=== PATIENT | female | born 1965 | race Caucasian/White ===

== ENCOUNTER 2019-11-03 13:28 | Outpatient (CLI) | payer MEDICARE, SELFPAY ==
--- NOTE | ~2019-11-03 | MM_ITS ---
EXAMINATION: MM screening ricky BI w tino HISTORY: Screening mammogram TECHNIQUE: Craniocaudal and mediolateral oblique 3-D tomosynthesis images were obtained and synthetic 2-D images were generated. CAD analysis was submitted and interpreted. COMPARISON: 04/17/2018, 02/14/2017, 02/01/2016 bilateral digital screening mammogram examinations BREAST PARENCHYMAL COMPOSITION: There are scattered areas of fibroglandular density. FINDINGS: There is no evidence of suspicious mass, calcification, or architectural distortion to sugg est malignancy in either breast. There has been no suspicious interval change. IMPRESSION: 1. No mammographic evidence of malignancy. 2. Recommend routine screening mammography in one year. BI-RADS Category 1: Negative Reviewed, dictated and finalized at location A.
== END 2019-11-03 13:29 | disposition home or self-care (01) ==
LOC: ANHIMG 13:33
PROVIDERS: PCP Internal Medicine; Visit Provider Obstetrics & Gynecology
DX: Z12.31 Encounter for screening mammogram for malignant neoplasm of breast (principal)
CPT/HCPCS: 77063; 77067

== ENCOUNTER 2020-01-14 13:35 | Outpatient (CLI) | payer MEDICARE, SELFPAY ==
--- NOTE | ~2020-01-14 | CT_ITS ---
EXAMINATION: CT lung screening DATE: 01/14/2020 14:18 INDICATION: NICOTINE DEPENDENCE, EXPOSURE TO ASBESTOS TECHNIQUE: Computed tomography (CT) of the chest was performed without intravenous contrast. Addition al 3D reconstructions utilizing coronal maximum intensity projection (MIP) were performed. Automated exposure control and iterative reconstruction technique were employed. The dose-length product was 10 4.12 mGy-cm. COMPARISON: None FINDINGS: Small calcified nodule in the right lower lobe consistent with old granulomatous disease. Lungs other aldana clear with no other suspicious pulmonary nodules, pneumonia, pulmonary edema, pleural effusion o r pneumothorax. No evident pleural plaques. Heart size is normal. Small amount of atherosclerotic cor onary artery calcification along the left anterior descending coronary artery. No pericardial effusio n. Thoracic aorta is normal in caliber. No pathologically enlarged thoracic lymphadenopathy. Visualiz ed upper abdomen is unremarkable. Mild thoracic spondylosis. IMPRESSION: 1. Lung-RADS category 1: Negative. Continue annual screening with noncontrast low-dose chest CT in 12 months. Reviewed, dictated and finalized at location A. IMPRESSION: 1. Lung-RADS category 1: Negative. Continue annual screening with noncontrast l ow-dose chest CT in 12 months.
== END 2020-01-14 13:36 | disposition home or self-care (01) ==
PROVIDERS: PCP Internal Medicine; Visit Provider Internal Medicine
DX: F17.210 Nicotine dependence, cigarettes, uncomplicated (principal); Z77.090 Contact with and (suspected) exposure to asbestos
CPT/HCPCS: G0297

== ENCOUNTER 2021-03-21 10:14 | Outpatient (CLI) | payer MEDICARE, SELFPAY ==
--- NOTE | ~2021-03-21 | MM_ITS ---
EXAMINATION: MM screening [facility] BI w tino HISTORY: Screening mammogram TECHNIQUE: Craniocaudal and mediolateral oblique 3-D tomosynthesis images were obtained and synthetic 2-D images were generated. CAD analysis was submitted and interpreted. COMPARISON: 11/03/2019, 04/17/2018, 02/14/2017 BREAST PARENCHYMAL COMPOSITION: The breasts are heterogeneously dense, which may obscure small masses . FINDINGS: There is no evidence of suspicious mass, calcification, or architectural distortion to sugg est malignancy in either breast. There has been no suspicious interval change. IMPRESSION: 1. No mammographic evidence of malignancy. 2. Recommend routine screening mammography in one year. BI-RADS Category 1: Negative Reviewed, dictated and finalized at location A.
== END 2021-03-21 10:15 | disposition home or self-care (01) ==
LOC: ANHIMG 10:17
PROVIDERS: PCP Internal Medicine; Visit Provider Internal Medicine
DX: Z12.31 Encounter for screening mammogram for malignant neoplasm of breast (principal)
CPT/HCPCS: 77063; 77067

== ENCOUNTER 2023-01-11 10:13 | Outpatient (CLI) | payer MEDICARE, SELFPAY ==
--- NOTE | ~2023-01-11 | MM_ITS ---
EXAMINATION: MM screening ricky BI w tino HISTORY: Screening mammogram TECHNIQUE: Craniocaudal and mediolateral oblique 3-D tomosynthesis images were obtained and synthetic 2-D images were generated. CAD analysis was submitted and interpreted. COMPARISON: 03/17/2021, 11/03/2019, 04/17/2018 bilateral screening mammogram examinations BREAST PARENCHYMAL COMPOSITION: The breasts are heterogeneously dense, which may obscure small masses . FINDINGS: There is no evidence of suspicious mass, calcification, or architectural distortion to sugg est malignancy in either breast. There has been no suspicious interval change. IMPRESSION: 1. No mammographic evidence of malignancy. 2. Recommend routine screening mammography in one year. BI-RADS Category 1: Negative Reviewed, dictated and finalized at location A.
== END 2023-01-11 10:14 | disposition home or self-care (01) ==
PROVIDERS: PCP Internal Medicine; Visit Provider Nurse Practitioner Obstetrics & Gynecology
DX: Z12.31 Encounter for screening mammogram for malignant neoplasm of breast (principal)
CPT/HCPCS: 77063; 77067

== ENCOUNTER 2023-04-25 11:53 | Outpatient (CLI) | payer MEDICARE, SELFPAY ==
--- NOTE | ~2023-04-25 | CT_ITS ---
CT Scan of the Chest without Contrast: Clinical Indication: Lung cancer screening, personal history of nicotine dependence Technique: Contiguous sections were acquired throughout the chest without intravenous contrast. Dose reduction technique was used on this scan by utilizing automated exposure control and iterative recon struction technique. The dose-length product (DLP) was 120.29 mGy-cm. COMPARISON: 01/14/2020 Findings: There is no evidence of any significant mediastinal, hilar or axillary lymphadenopathy. The mediastin al soft tissues appear normal. There is no evidence of pleural or pericardial effusion. The lungs are clear. No pulmonary nodules or infiltrates are noted. Images through the upper abdomen reveal no abnormalities. Impression: Lung RADS 1: Negative. 12 month follow-up screening CT advised. Reviewed, dictated and finalized at location . Impression: Lung RADS 1: Negative. 12 month follow-up screening CT advised.
== END 2023-04-25 11:54 | disposition home or self-care (01) ==
PROVIDERS: PCP Internal Medicine; Visit Provider Internal Medicine
DX: Z12.2 Encounter for screening for malignant neoplasm of respiratory organs (principal); F17.210 Nicotine dependence, cigarettes, uncomplicated
CPT/HCPCS: 71271

== ENCOUNTER 2023-05-22 13:30 | Outpatient (CLI) | payer MEDICARE, SELFPAY ==
--- NOTE | ~2023-05-22 | DEXA_ITS ---
Bone Density Report Name: ROXANA WORKMAN Age: 57 Sex: Female Ethnicity: White Date of : 1965 Indication: postmenopausal; screening for osteoporosis; height loss; Referring Provider: VICKIFAISAL Study: Bone densitometry was performed. Exam Date: May 22, 2023 Accession number: [id number] Bone Density: Region BMD T-score Z-score Classification AP Spine(L1-L4) 1.248 1.8 3.2 Normal Femoral Neck (Left) 0.754 -0.9 0.4 Normal Total Hip (Left) 0.959 0.1 1.1 Normal Femoral Neck (Right) 0.727 -1.1 0.2 Osteopenia Total Hip (Right) 0.938 0.0 0.9 Normal Total Hip Mean 0.949 0.1 1.0 Normal World Health Organization criteria for BMD impression classify patients as: Normal (T-score at or above -1.0), Osteopenia (T-score between -1.0 and -2.5), or Osteoporosis (T-score at or below -2.5). 10-year Fracture Risk(1): Major Osteoporotic Fracture 6.8% Hip Fracture 0.7% Reported Risk Factors: [place] (), Neck BMD=0.727, BMI=30.6, smoking (1) FRAX(R) Version 3.08. Fracture probability calculated for an untreated patient. Fracture probability may be lower if the patient has received treatment. Clinical Information Provided by Patient: Smokes Has used the following medications: Vitamin D, Calcium Patient maximum height was 64 Menopause Age: 41 No regular weight bearing exercise Drinks caffeinated beverages Onset of menses at age 9 Number of children 2 Impression: The patient has low bone mass, based on the Right Femoral Neck T-score. The patient has an estimated ten-year risk of hip fracture of 0.7% and an estimated ten-year risk of major fracture of 6.8%, based on the WHO FRAX algorithm. The patient has risk factors, including: smoking. Discussion: BONE DENSITY IS LOW AT ONE OR MORE SKELETAL SITES. This patient's lowest T-score is low at one or more skeletal sites. It meets the World Health Organization's (WHO) criteria for ?low bone mass? (T-score between -1.0 and -2.5). The patient's 10-year risk of fracture as calculated by FRAX is less than the threshold where pharmacological therapy is recommended by the National Osteoporosis Foundation (NOF). However, all treatment decisions require clinical judgment and consideration of individual patient factors, including patient preferences, comorbidities, previous drug use, risk factors not captured in the FRAX model (e.g., frailty, falls, vitamin D deficiency, increased bone turnover, interval significant decline in bone density) and possible under or overestimation of fracture risk by FRAX. The patient should follow a healthful lifestyle (good nutrition with adequate calcium and vitamin D, and appropriate weight-bearing exercise). Follow-Up: Consider repeating this study in 2 to 3 years to reassess this patient
== END 2023-05-22 13:31 | disposition home or self-care (01) ==
LOC: ANHIMG 13:32
PROVIDERS: PCP Internal Medicine; Visit Provider Internal Medicine
DX: Z13.820 Encounter for screening for osteoporosis (principal); Z78.0 Asymptomatic menopausal state
CPT/HCPCS: 77080

== ENCOUNTER 2025-02-08 06:45 | Day surgery (SDC) | payer MEDICARE, SELFPAY ==
[2025-01-26 13:55] VITALS: BMI 26.4
--- OUTSIDE RECORDS SUMMARY | 2025-02-08 07:04 | XMS_ITS ---
Author Organization [facility] [employer] | [facility] Address [address] [place] [address] Care Team Providers Care Supervisor Solder Making Name Role Phone Joel Augustin MD Primary Care Provider Ramiro Cagle Unavailable [phone] Allergies Allergen (clinical drug ingredient) Drug/Non Drug Allergy documented on EMR Reaction Allergy Type Onset Date Status Iodine Unknown Drug Allergy Active Medications Medication SIG (Take, Route, Frequency, Duration) Notes Start Date End Date Status FLUoxetine HCl 40 MG 1 capsule every Mor allison Oral Once a day Active ALPRAZolam 0.5 MG 0.5 tablet Oral Thre e times a day Active Amphetamine-Dextroamphetam ine 30 MG 1 tablet Orally Once a day Active Amphetamine ER 10 MG 1 tablet in the mor allison Orally Once a day Active One A Day Women 50 Plus - as directed Orally Active B Complex - as directed Orally Active HYDROcodone-Acetaminophen 5-325 MG 1 tablet as needed Orally every 6 hrs Active Chantix 1 MG 1 tablet Orally twic e a day; Duration: 30 days 06/10/2024 08/09/2024 Active Social History Sex Assigned At : Social History Observation Description Sex Assigned At Female Vital Signs Height 64 in 06/24/2024 Height-cm 162.56 cm 06/24/2024 Encounters Encounter Location Date Provider Diagnosis [facility] [employer] [place] [id number] [place] [address] 06/24/2024 Ramiro Reyes Plan Of Treatment No Information Progress Notes * Beatriz AGUIRREOB:[birth year] (59 yo F)Acc No.[id number]:06/24/2024 Patient: Carola DAVILA Provider: Socorro REYES MD :1965 A ge:58 Y S ex:Female Date:06/24/2024 Phone: Address:[facility] [address] [facility] Pcp:Joel Augustin MD Subjective: * Chief Complaints: * * Active Problem List F17.200 Nicotine dependence with current use Modified On:04/23/2024W/U Status:confirmed 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 * Medications: T aking ALPRAZolam 0.5 MG Tablet 0.5 tablet Oral Three times a day , Taking Amphetamine-Dextroamphetamine 30 MG Tablet 1 tablet Orally Once a day , Taking Amphetamine ER 10 MG Tablet Chewable Extended Release 1 tablet in the morning Orally Once a day , Taking One A Day Women 50 Plus - Tablet as directed Orally , Taking FLUoxetine HCl 40 MG Capsule 1 capsule every Morning Oral Once a day , Taking B Complex - Capsule as directed Orally , Taking HYDROcodone-Acetaminophen 5-325 MG Tablet 1 tablet as needed Orally every 6 hrs , Taking Chantix 1 MG Tablet 1 tablet Orally twice a day , stop date 08/09/2024, Medication List reviewed and reconciled with the patient * Allergies: I odine. Objective: * Vitals: H t: 64 in, Ht-cm: 162.56 cm. Assessment: Plan: * Treatment: * Billing Information: * Visit Code: * Procedure Codes: * Electronic signature of Ya Reyes MD on 02/08/2025 at 07:04 AM CDT Sign off status: Pending * Provider: Socorro REYES MD Date: 08/24/2023 Generated for Christie adler/Jose L/eTeliansmitting on: 02/08/2025 07:04 AM CDT"
--- OUTSIDE RECORDS SUMMARY | 2025-02-08 07:04 | XMS_ITS | Referral Summary ---
[facility] Organization [facility] Address [address] [place] [address] Care Team Providers Care Nuclear Plant Technical Advisor Name Role Phone Joel Augustin MD Primary Care Provider + Allergies Active Allergy Reactions Criticality Noted Date Comments Iodinated Contrast Media Unknown,Vomiting Low 06/26 Iodine Unknown 06/20/2009 Shellfish Vomiting Low 04/25/2010 Medications medroxyPROGESTER one (PROVERA) 2.5 mg tablet take 1 Tablet by oral route every day 0 0 5 Active estrogens-methyl TESTOSTERone (EEMT,COVARYX) 1.25-2.5 mg per tablet take 1 tablet by oral route for 21 consecutive days, followed by 7 days off 0 0 5 Active rosuvastatin (CRESTOR) 40 mg tablet TAKE 1 TABLET BY MOUTH EVERY DAY 90 3 4 Active fluticasone (FLONASE) 50 mcg/actuation nasal spray inhale 2 spray by Intranasal route every day in each nostril 1 spray 3 1 Active FLUoxetine (PROzac) 40 mg capsule take 1 capsule by oral route every day in the morning 90 3 6 Active zolpidem (AMBIEN) 5 mg tablet Take one by mouth one time per day at bedtime as needed 90 1 8 Active phentermine-topi ramate (QSYMIA) 7.5-46 mg capsule, ER multiphase 24 hr Take 1 capsule by oral route every day in the morning 30 capsule 3 7 Active ALPRAZolam (XANAX) 0.5 mg tablet Take 1 tablet (0.5 mg total) by mouth 3 (three) times a day. 270 tablet 7 Active tretinoin (RETIN-A) 0.01 % gel Apply topically nightly. 30 g 11 7 Active buprenorphine (BUTRANS) 10 mcg/hour Place 1 patch on the skin every 7 days. 12 patch 1 7 Active HYDROcodone-acet aminophen (NORCO) 5-325 mg per tabletIndication s:Pain Take 1-2 tablets by mouth every 4 (four) hours as needed for pain Earliest Fill Date: 06/17/17. 180 tablet 7 Active zolpidem (AMBIEN) 5 mg tabletIndication s:Sleep-Onset Insomnia Take by mouth. Activ e AMOXICILLIN 500 mg capsule TAKE 1 TABLET BY MOUTH TWICE A DAY FOR 7 DAYS 0 9 Active rosuvastatin (CRESTOR) 40 mg tablet Take by mouth daily. Active estradiol (ESTRACE) 0.5 mg tablet Take 0.5 mg by mouth daily. 3 8 Active MIMVEY 1-0.5 mg per tablet Take 1 tablet by mouth daily. 3 8 Active fluticasone (FLONASE ALLERGY RELIEF) 50 mcg/actuation nasal spray Administer into each nostril. Active HYDROcodone-acet aminophen (NORCO) 10 mg hydrocodone per tabletIndication s:Pain Take by mouth. Activ e bimatoprost (LATISSE) 0.03 % ophthalmic solutionIndicati ons:Hypotrichosi s of Eyelid Eyelashes Apply topically. Active methylPREDNISolo ne (MEDROL DOSEPACK) 4 mg Dosepack TAKE 6 TABLETS ON DAY 1 DIRECTED ON PACKAGE AND DECREASE BY 1 TAB EACH DAY FOR A TOTAL OF 6 DAYS 0 9 Active triamcinolone (NASACORT) 55 mcg nasal inhaler Administer into each nostril. Active oseltamivir (TAMIFLU) 75 mg capsule TAKE 1 CAPSULE BY MOUTH TWICE A DAY FOR 5 DAYS 0 9 Active QSYMIA 15-92 mg capsule, ER multiphase 24 hr Take 1 capsule by mouth every morning. 3 9 Active tretinoin (RETIN-A) 0.01 % gel Apply topically daily. Active rOPINIRole (REQUIP) 0.25 mg tablet TAKE 1 TAB BY MOUTH AT BEDTIME. MAY INCREASE TO 2 TABS AT BEDTIME IF NO IMPROVEMENT IN 3 DAYS. 3 9 Active silver sulfadiazine (SILVADENE) 1 % cream Apply topically. 8 Active testosterone (TESTIM,VOGELXO) 50 mg/5 gram (1 %) gel Place 50 mg on the skin daily. 8 Active ALPRAZolam (XANAX) 0.5 mg tablet Take by mouth every 8 hours. Active estrogens-methyl TESTOSTERone (EEMT,COVARYX) 0.625-1.25 mg per tabletIndication s:Vasomotor Symptoms associated with Menopause Take by mouth. 7 Active medroxyPROGESTER one (PROVERA) 2.5 mg tablet Take by mouth daily. 8 Active FLUoxetine (PROzac) 20 mg capsule Take by mouth daily. Active HYDROcodone-acet aminophen (NORCO) 5 mg hydrocodone per tablet TAKE ONE OR TWO TABLETS BY MOUTH EVERY FOUR HOURS NEEDED FOR PAIN 0 9 Active Active Problems Problem Noted Date Diagnosed Date Encounter for screening colonoscopy 07/06/2024 History of colonic polyps 07/06/2024 Family history of colon cancer 07/06/2024 Ganglion of ankle 01/19/2019 Assessment & Plan (01/19/2019 2:44 PM CDT): Unfortunately we do not offer services to remedy this, patient was referred back to , no charge. Healthcare maintenance 05/14/2017 Medication management 05/14/2017 Multiple-type hyperlipidemia 08/27/2016 Overview (11/02/2016): MIXED HYPERLIPIDEMIA Complex regional pain syndrome 07/02/2016 Overview (11/02/2016): Complex regional pain syndrome (CRPS) Menopause present 12/28/2014 Pain of right lower extremity 12/22/2014 Overview (11/02/2016): Right leg pain Macrocytosis 08/23/2014 Overview (11/02/2016): Macrocytosis Tobacco dependence syndrome 12/12/2013 Overview (11/01/2016): TOBACCO USE DISORDER Depression 12/12/2013 Overview (11/02/2016): DEPRESSIVE DISORDER NEC Chronic pain 02/15/2013 Spasm 02/15/2013 Neuralgia 02/15/2013 Complex regional pain syndrome of lower extremit y 02/15/2013 Pain in extremity 07/09/2012 Hypercholesterolemia 06/26/2012 Ankle sprain 06/20/2009 Immunizations Immunization Administration Dates Next Due Influenza, Quadrivalent, Spl it, Intramuscular 04/23/2014 Influenza, Quadrivalent, Spl it, Preservative Free, Intradermal 04/26/2016,06/03/2015 Influenza, Quadrivalent, Spl it, Preservative Free, Intramuscular 05/14/2017 Influenza, Split 07/31/2013,07/02/2011, 0 Influenza, Trivalent, IM (MDV) 04/21/2012,2008 Social History Tobacco Use Types Packs/Day Years Used Date Smoking Tobacco: Every Day Smokeless Tobacco: Current Tobacco Cessation:Ready to Q uit: Yes Alcohol Use Standard Drinks/Week Comments Yes 0 (1 standard drink = 0.6 oz pur e alcohol) social Comments Unknown Sex and Gender Information Value Date Recorded Sex Assigned at Not on file Legal Sex Female 4:48 PM 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 Gender Identity Not on file Sexual Orientation Not on file Last Filed Vital Signs Vital Sign Reading Time Taken Comments Blood Pressure 115/72 03/05/2019 11:37 AM CDT Pulse 84 03/05/2019 11:37 AM CDT Temperature - - Respiratory Rate 20 05/14/2017 3:26 PM CDT Oxygen Saturation - - Inhaled Oxygen Concentration - - Weight 78 kg (172 lb) 03/05/2019 11:37 AM CDT Height 162.6 cm (5' 4) 03/05/2019 11:37 AM CDT Body Mass Index 29.52 03/05/2019 11:37 AM CDT Plan of Treatment Not on file Insurance [facility] MEDICARE [facility] MEDICARE [employer] MEDICARE ADVANTAGE Care Teams Nuclear Plant Technical Advisor Relationship Specialty [place] [address] [place] [address] [place] [address] PCP - General 10/26/16
--- OUTSIDE RECORDS SUMMARY | 2025-02-08 07:04 | XMS_ITS | Data Portability ---
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 Patient will come back in a year unless there are new symptoms. Not available 03/21/2021 12:48:08 11/07/2022 11/07/2022 Annual gynecological exam performed. Patient will come back in a year unless there are new symptoms. [email or web address] Not available 11/07/2022 12:28:16 11/10/2024 11/10/2024 Annual gynecological exam performed. Patient will come back in a year unless there are new symptoms. [email or web address] Not available 11/10/2024 14:33:37 Plan of Treatment Reminders Order Date Submit Date Provider Last Modified By Organization Details Last Modified Time Details Appointments None recorded. Lab pap, IG + HR HPV - HPV regardless but if HPV is positive need subtyping 16,18/45 2024 025 [facility] (Lab), [address], [place], [address], 5 00:21:04 testosteron e, total, serum 2020 021 [facility] (Lab), [address], [place], [address], 1 02:23:04 Referral None recorded. Procedures None recorded. Surgeries None recorded. Imaging MAMMO, screening, digital, bilateral [email or web address] [place] [address] Ctr, [address], [address], [place], [address], 5 10:55:05 MAMMO, screening, bilateral 2022 023 [facility] Ctr, [address], [address], [place], [address], 3 05:01:14 Medication Orders Augmentin 875 mg-125 mg tablet 2022 023 [address] [id number], [address] [place], [place], [id number], 5 14:42:18 estradiol 0.5 mg tablet 2022 023 [place] [address] [facility], [address], [address], [place], [place], [id number], 5 14:44:02 Prometrium 100 mg capsule 2022 023 [place] [address] [facility], [address] [place] [address], [address], [place], [place], [id number], 5 14:46:10 estradiol-n orethindron e acet 0.5 mg-0.1 mg tablet 2020 021 [email or web address] [id number], [address] [place], [address], 3 13:38:02 Patient TargetsNo targets recorded. Patient InstructionsNo instructions recorded. Reason for Referral None Reported. Results Created Date Observation Date Name Description Value Unit Range Abnormal Flag Note LastModifiedBy Organization Detail LastModifiedTime 03/21/20 21 03/21/2021 TESTO STERO NE, TOTAL testosterone , total 19 NG/dL 0-100 Not Available [facility] (Lab) [address], [place], [address], 03/22/2021 02:23:04 03/21/20 21 03/21/2021 IMAGE GUIDE D PAP AND HPV REGAR DLESS image guided Pap, HPV regardless of Pap result SEE RESULT S BELOW CASE REPOR T: Cytol ogy Gynec ologi janna Repor t Case: [id number] Autho terencedavion adela Provi nicole: Bryan tano , Gama Jorge cted: 03/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 Locat ion: [place] [facility] Recei sherry: 03/22 0119 First Scree n: Nicanor Weber, CT Speci men: Marleni cooper Pap - Image d, Cervi x STATE MENT OF ADEQU ACY: Satis facto ry for evalu ation Trans forma tion zone compo nent prese nt FINAL DIAGN OSIS: Negat carroll for Intra epith elial Lesio arron or Chen price (NIL) Elect kristyluana juan joselo d by Nicanor Weber, CT on 2020 at 10:34 AM ----- ----- ----- ----- ----- ----- ----- ----- ----- ----- ----- ----- ----- ----- ----- ----- ----- ---- HPV RESUL TS: HPV mRNA E6/E7 : No HPV mRNA Detec andrew NOTE: This high risk HPV mRNA assay detec ts fourt een high- risk HPV types (16, 18, 31, 33, 35, 39, 45, 51, 52, 56, 58, 59, 66, 68) witho ut diffe renti ation . COMME NT: Note: This speci men was revie wed by a Cytot echno logis t and/o r Patho logis t (as indic ated in this repor t) after evalu ation using the Thinp rep Imagi ng Syste m. CLINI JANNA INFOR MATIO N: Menst rual Statu s: LMP (if appli cable ): Clini janna Histo ry/Pr eviou s Pap: Type of Neopl adeline (if appli cable ): Signi fican t Clini janna Findi ngs: Other Histo ry: Hormo marlene (if appli cable ): PAP EDUCA NAYLA L NOTE: The Pap Test is a scree allison test with an inher ent false negat carroll rate. Liqui d-bas e sampl ing may decre ase, but will not elimi jennifer, false negat carroll resul ts. A negat carroll resul t does not precl ude the prese nce and/o r devel opmen t of disea se, since the prese nce of abnor mal cells in the sampl e depen ds on the locat ion of the lesio n and sampl ing techn ique. Indira nued regul ar scree allison is the best metho d of cance r preve ntion . If repor andrew cytol ogic findi ng do not corre late with physi janna and/o r histo rical findi ngs, furth er inves tigat ion is recom haseeb d, as clini lu mejia nted. 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 Elect aline juan joselo d by Nathan valdes, Shawn alvarez, CT on 2022 at 2:36 PM ----- ----- ----- ----- ----- ----- ----- ----- ----- ----- ----- ----- ----- ----- ----- ----- ----- ---- HPV RESUL TS: HPV mRNA E6/E7 : No HPV mRNA Detec andrew NOTE: This high risk HPV mRNA assay detec ts fourt een high- risk HPV types (16, 18, 31, 33, 35, 39, 45, 51, 52, 56, 58, 59, 66, 68) witho ut diffe renti ation . COMME NT: This speci men was revie wed by a Cytot echno logis t and/o r Patho logis t (as indic ated in this repor t) after evalu ation using the Thinp rep Imagi ng Syste m. CLINI JANNA INFOR MATIO N: Menst rual Statu s: LMP (if appli cable ): Clini janan Histo ry/Pr eviou s Pap: Type of Neopl adeline (if appli cable ): Signi fican t Clini janna Findi ngs: Other Histo ry: Hormo marlene (if appli cable ): PAP EDUCA NAYLA L NOTE: The Pap Test is a scree allison test with an inher ent false negat carroll rate. Liqui d-bas ed sampl ing may decre ase, but will not elimi jennifer, false negat carroll resul ts. A negat carroll resul t does not precl ude the prese nce and/o r devel opmen t of disea se, since the prese nce of abnor mal cells in the sampl e depen ds on the locat ion of the lesio n and sampl ing techn ique. Indira nued regul ar scree allison is the best metho d of linda r preve ntion . If repor andrew cytol ogic findi ng do not corre late with physi janna and/o r histo rical findi ngs, furth er inves tigat ion is recom haseeb d, as clini lu mejia nted. Not Available [facility] (Lab) [address] [facility], [place], [address], 11/12/2022 15:39:00 11/11/19 25 11/10/2024 IMAGE GUIDE D PAP AND HPV REGAR DLESS image guided Pap, HPV regardless of Pap result SEE RESULT S BELOW CASE REPOR T: Cytol ogy Gynec ologi janna Repor t Case: [id number] Autho semaj chapman Provi nicole: Aylin Archibald, VIRAL Colle cted: 11/10 1707 Order ing Locat ion: [place] Patho [place]y Recei sherry: 11/11 0723 First Marleni n: Willa Perry ed, CT Speci men: Marleni cooper Pap - Image d, Cervi x STATE MENT OF ADEQU ACY: Satis facto ry for evalu ation Trans forma tion zone compo nent absen t ----- ----- ----- ----- ----- ----- ----- ----- ----- ----- ----- ----- ----- ----- ----- ----- ----- ---- FINAL DIAGN OSIS: Negat carroll for Intra epith elial Gray heller or Chen price (NIL) . Marshall josue d by Willa Perry ed, CT on 2024 at 2317 CDT ----- ----- ----- ----- ----- ----- ----- ----- ----- ----- ----- ----- ----- ----- ----- ----- ----- ---- HPV RESUL TS: HPV mRNA E6/E7 : No HPV mRNA Detec andrew NOTE: This high risk HPV mRNA assay detec ts fourt een high- risk HPV types (16, 18, 31, 33, 35, 39, 45, 51, 52, 56, 58, 59, 66, 68) witho ut diffe renti ation . COMME NT: This speci men was revie wed by a Cytot echno logis t and/o r Patho logis t (as indic ated in this repor t) after evalu ation using the Thinp rep Imagi ng Syste m. CLINI JANNA INFOR MATIO N: Menst rual Statu s: LMP (if appli cable ): Clini janna Histo ry/Pr eviou s Pap: Type of Neopl adeline (if appli cable ): Signi fican t Clini janna Findi ngs: Other Histo ry: Hormo marlene (if appli cable ): PAP EDUCA NAYLA L NOTE: The Pap Test is a scree allison test with an inher ent false negat carroll rate. Liqui d-bas ed sampl ing may decre ase, but will not elimi jennifer, false negat carroll resul ts. A negat carroll resul t does not precl ude the prese nce and/o r devel opmen t of disea se, since the prese nce of abnor mal cells in the sampl e depen ds on the locat ion of the lesio n and sampl ing techn ique. Indira nued regul ar scree allison is the best metho d of cance r preve ntion . If repor andrew cytol ogic findi ng do not corre late with physi janna and/o r histo rical findi ngs, furth er inves tigat ion is recom haseeb d, as clini lu mejia nted. Not Available [facility] (Lab) [address], [place], [address], 11/12/2024 00:21:04 Result Notes None recorded. Problems Name Problem SNOMED Code Status Onset Date Resolution Date Notes Provider Name and Address Organization Details Recorded Time Screenin g for malignan t neoplasm of rectum Completed 201703/21/2021 Screening for malignant neoplasms of the rectum;Re corded Elsewhere : No Locati on: [facility] So urce: EHR Chron ic: N Practic e ID: 0001 Bill able Time: 01:00:00 PM Deanne Mcdowell [facility] 12:31:48 Speciali zed medical examinat ion Completed 201403/21/2021 Gynecolog ical Examinati on;Record ed Elsewhere : No Locati on: [facility] So urce: EHR Chron ic: N Practic e ID: 0001 Bill able Time: 11:30:00 AM Deanne [facility] 12:31:[address] Concept Completed 201503/21/2021 Encntr for general adult medical exam w/o abnormal findings; Recorded Elsewhere : No Locati on: [facility] So urce: EHR Chron ic: N Practic e ID: 0001 Bill able Time: 03:00:00 PM Deanne Mcdowell [facility] 12:31:49 Adult health examinat ion Completed 201403/21/2021 ROUTINE MEDICAL EXAM;Ayad rded Elsewhere : No Locati on: [facility] So urce: EHR Chron ic: N Practic e ID: 0001 Bill able Time: 11:30:00 AM Deanne [facility] 12:31:28 Acute frontal sinusiti s [id number] Completed 201403/21/2021 Frontal sinusitis ;Recorded Elsewhere : No Locati on: [facility] So urce: EHR Chron ic: N Practic e ID: 0001 Bill able Time: 03:00:00 PM Deanne [facility] 12:31:26 Microsco pic hematuri a [id number] Completed 201403/21/2021 MICROSCOP IC HEMATURIA ;Recorded Elsewhere : No Locati on: [facility] So urce: EHR Chron ic: N Practic e ID: 0001 Bill able Time: 11:30:00 AM Deanne Mcdowell [facility] 12:31:37 Evaluati on finding Completed 201603/21/2021 Hematuria , unspecifi ed;Record ed Elsewhere : No Locati on: [facility] So urce: EHR Chron ic: N Practic e ID: 0001 Bill able Time: 03:00:00 PM Deanne Mcdowell [facility] 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 So urce: EHR Chron ic: N Practic e ID: 0001 Bill able Time: 03:00:00 PM Deanne [facility] 12:31:51 Tobacco user [id number] Completed 201303/21/2021 Tobacco Abuse, History of;Record ed Elsewhere : No Locati on: [facility] So urce: EHR Chron ic: N Practic e ID: 0001 Bill able Time: 11:00:00 AM Deanne Mcdowell [facility] 12:31:55 History of clinical finding in subject [id number] Completed 201303/21/2021 Tobacco Abuse, History of;Record ed Elsewhere : No Locati on: [facility] So urce: EHR Chron ic: N Practic e ID: 0001 Bill able Time: 11:00:00 AM Deanne [facility] 12:31:31 Increase d frequenc y of urinatio n [id number] Completed 201403/21/2021 Urinary frequency ;Recorded Elsewhere : No Locati on: [facility] So urce: EHR Chron ic: N Practic e ID: 0001 Bill able Time: 11:30:00 AM Deanne [facility] 12:31:32 Menopaus e present [id number] Completed 201803/21/2021 Menopausa l and female climacter ic states;Re corded Elsewhere : No Locati on: [facility] So urce: EHR Chron ic: N Practic e ID: 0001 Bill able Time: 01:00:00 PM Deanne [facility] 12:31:35 Menopaus al symptom [id number] Completed 201303/21/2021 Menopausa l or female climacter ic states;Re corded Elsewhere : No Locati on: [facility] So urce: EHR Chron ic: N Practic e ID: 0001 Bill able Time: 11:00:00 AM Deanne Mcdowell [facility] 12:31:34 Screenin g for malignan t neoplasm of cervix Completed 201303/21/2021 Pap Smear;Pra ctice ID: 0001 Deanne [facility] 12:31:46 Proteinu james [id number] Completed 201403/21/2021 Proteinur ia;Practi ce ID: 0001 Deanne Mcdowell [facility] 12:31:[address] Concept Completed 201603/21/2021 Encounter for general adult medical exam w abnormal findings; Practice ID: 0001 Deanne Mcdowell [facility] 12:31:39 Reduced libido [id number] Completed 201703/21/2021 Decreased libido;Re corded Elsewhere : No Locati on: [facility] So urce: EHR Chron ic: N Practic e ID: 0001 Bill able Time: 01:00:00 PM Deanne Mcdowell [facility] 12:31:43 Problem Notes None recorded. Procedures Surgical History Date Name Laterality Status Provider Name and Address Organization Details Recorded Time 11/08/19 23 Date of Last Pap Smear completed [facility] 11/10/2024 14:48:25 03/21/20 21 Date of Last Mammogram completed [facility] 03/21/2021 12:52:01 07/29/19 20 completed [facility] 03/21/2021 12:52:33 07/29/19 20 Colonoscopy completed [facility] 03/21/2021 12:55:35 07/29/19 15 Colonoscopy completed [facility] 03/21/2021 12:55:33 07/29/19 11 procedure on ankle completed [facility] 06/29/2021 14:38:27 07/29/19 07 Endometrial Ablation completed [facility] 06/29/2021 14:38:15 10/10/18 93 section completed [facility] 07/20/2021 16:45:09 11/08/18 90 section completed [facility] 07/20/2021 16:45:18 Imaging Results None recorded. Procedure Notes None recorded. Medical Equipment None Reported. Allergies Allergen ID Allergen Name Allergen Category Reaction Reaction Severity Criticality Documentation Date Start Date Code Code System Note Provider Name and Address Organization Details Recorded Time shellfish derived food,medi cation Not available Not available Not available 11/07/2022 87801 UNK Erlinda Sotelo [facility] 3 12:54:07 Iodinated contrast media (substanc e) medicatio n Not available Not available Not available 11/07/2022 07829 2003 SNOMED Erlinda Sotelo [facility] 3 12:54:16 43747 latex environme nt,medica tion Not available Not available Not available 11/10/2024 85882 91 RxNorm [place] 14:42:09 Medications Name Sig Start Date Stop Date Status Note LastModified by Organization Details LastModified Time fluoxetin e 40 mg capsule TAKE 1 CAPSULE BY MOUTH EVERY DAY IN THE MORNING active Not Available Not Available No t Available tretinoin 0.01 % topical gel APPLY A THIN FILM TO AFFECTED AREA AT BEDTIME 11/07 completed Not Available Not Available Not Available azithromy brown 250 mg tablet take 2 tablet by oral route every day for 1 day then 1 tablet (250 mg) by oral route once daily for 4 days 11/10 completed Not Available Not Available Not Available tizanidin e 4 mg tablet TAKE 1 TABLET BY MOUTH DAILY AT BEDTIME 06/29 completed Not Available Not Available Not Available fluconazo le 150 mg tablet TAKE 1 TABLET BY ORAL ROUTE CAN REPEAT IN 3 DAYS NEEDED 11/10 completed Not Available Not Available Not Available hydrocodo ne 5 mg-acetam inophen 500 mg capsule take 1 capsule by oral route every 6 hours as needed 03/21 completed Prescrib ed Elsewher e: Yes Loca tion: [facility] odify By: yuri solorzano DateTime : 12/24/19 14 01:00:00 PM Not Available Not Available Not Available hydrocodo ne 5 mg-acetam inophen 325 mg tablet TAKE 1 TABLET BY MOUTH DAILY EVERY 4 HOURS NEEDED 11/10 completed Not Available Not Available Not Available Provera 2.5 mg tablet take 1 Tablet by oral route every day 07/09 completed Prescrib ed Elsewher e: No Locat ion: [facility] odify By: Encount er DateTime : 06/18/20 19 09:59:44 AM Not Available Not Available Not Available phentermi ne 15 mg capsule TAKE 1 CAPSULE BY MOUTH ONCE DAILY IN THE MORNING 11/10 completed Not Available Not Available Not Available penicilli n V potassium 500 mg tablet 06/29 completed Not Available Not Available Not Available Flonase 50 mcg/actua tion nasal spray,dilia pension spray 1 spray by intranas al route every day in each nostril 03/21 completed Prescrib ed Elsewher e: Yes Loca tion: Sharyn kinney [facility] odify By: yuri solorzano DateTime : 12/24/19 14 01:00:00 PM Not Available Not Available Not Available estradiol -norethin drone acet 1 mg-0.5 mg tablet take 1 tablet by oral route every day 06/26 completed Prescrib ed Elsewher e: No Locat ion: Sharyn kinney [facility] odify By: jurgen Roth ter DateTime : 04/17/20 18 01:00:00 PM Not Available Not Available Not Available Nasacort AQ 55 mcg nasal spray aerosol spray 1 spray by intranas al route every day in each nostril 03/21 completed Prescrib ed Elsewher e: Yes Loca tion: Sharyn kinney [facility] odify By: yuri solorzano DateTime : 12/24/19 14 01:00:00 PM Not Available Not Available Not Available alprazola m 0.5 mg tablet TAKE 1 TABLET BY MOUTH THREE TIMES DAILY active Not Available Not Available No t Available amoxicill in 875 mg tablet TAKE 1 TABLET BY MOUTH TWICE DAILY FOR 7 DAYS 03/21 completed Not Available Not Available Not Available Silvadene 1 % topical cream apply by topical route 3 times every day a thick layer to entire burn area 07/09 completed Prescrib ed Elsewher e: No Locat ion: Sharyn kinney [facility] odify By: [email or web address] Encount er DateTime : 04/17/20 18 01:00:00 PM Not Available Not Available Not Available Prozac 20 mg capsule take 1 capsule by oral route every day in the morning 06/29 completed Prescrib ed Elsewher e: Yes Loca tion: Sharyn kinney [facility] odify By: yuri solorzano DateTime : 12/24/19 14 01:00:00 PM Not Available Not Available Not Available esterifie d estrogens -methylte stosteron e 1.25 mg-2.5 mg tablet TAKE 1 TABLET EVERY DAY 12/28 completed Prescrib ed Elsewher e: No Locat ion: [facility] odify By: yuri solorzano DateTime : 11/03/19 01:17:52 PM Not Available Not Available Not Available dextroamp hetamine- amphetami ne ER 10 mg 24hr capsule,e xtend release TAKE 1 CAPSULE BY MOUTH EVERY MORNING 11/10 completed Not Available Not Available Not Available zolpidem 5 mg tablet TAKE 1 TABLET BY MOUTH EVERY DAY AT BEDTIME NEEDED 11/10 completed Not Available Not Available Not Available estradiol 0.5 mg tablet TAKE 1 TABLET BY MOUTH DAILY WITH A MEAL 11/10 completed Not Available Not Available Not Available Menest 1.25 mg tablet take 1 tablet by oral route every day 01/31 completed Prescrib ed Elsewher e: No Locat ion: [facility] odify By: zonia Ramirez nter DateTime : 04/21/20 03:00:00 PM Not Available Not Available Not Available methylpre dnisolone 4 mg tablets in a dose pack TAKE 6 TABLETS ON DAY 1 DIRECTED ON PACKAGE AND DECREASE BY 1 TAB EACH DAY FOR A TOTAL OF 6 DAYS 11/07 completed Not Available Not Available Not Available dextroamp hetamine- amphetami ne ER 30 mg 24hr capsule,e xtend release TAKE 1 CAPSULE BY MOUTH EVERY MORNING 11/10 completed Not Available Not Available Not Available topiramat e 100 mg tablet TAKE 1 TABLET BY MOUTH TWICE DAILY active Not Available Not Available No t Available progester one micronize d 100 mg capsule TAKE 1 CAPSULE BY MOUTH EVERY DAY AT NIGHT 2024 active Not Available Not Available Not Avai lable amoxicill in 875 mg-potass ium clavulana te 125 mg tablet TAKE 1 TABLET BY MOUTH TWICE DAILY FOR 7 DAYS 11/10 completed Not Available Not Available Not Available Testim 50 mg/5 gram (1 %) transderm al gel Apply 3 drops to both inner thighs daily 11/07 completed Called in to [facility] Not Available Not Available Not Available rosuvasta tin 40 mg tablet TAKE 1 TABLET BY MOUTH DAILY active Not Available Not Available No t Available Wellbutri n XL 300 mg 24 hr tablet, extended release TAKE 1 TABLET BY MOUTH EVERY DAY 06/26 completed Prescrib ed Elsewher e: No Locat ion: [facility] gregoria [facility] odify By: jurgen solorzano DateTime : 06/23/20 18 09:05:03 AM Not Available Not Available Not Available tizanidin e 4 mg capsule TAKE 1 TABLET (4MG) BY MOUTH AT BEDTIME 06/29 completed Not Available Not Available Not Available EEMT HS 0.625 mg-1.25 mg tablet take 1 tablet by oral route for 21 consecut carroll days, followed by 7 days off 04/17 completed Prescrib ed Elsewher e: No Locat ion: [facility] gregoria [facility] odify By: elly solorzano DateTime : 02/16/20 17 10:54:51 AM Not Available Not Available Not Available estradiol -norethin drone acet 0.5 mg-0.1 mg tablet Take 1 tablet by mouth every day 11/07 completed Not Available Not Available Not Available lisdexamf etamine 70 mg capsule TAKE 1 CAPSULE BY MOUTH EVERY DAY active Not Available Not Available No t Available Woody 60 mg capsule 12/28 completed Prescrib ed Elsewher e: Yes [facility] odify By: yuri solorzano DateTime : 12/24/19 14 01:00:00 PM Not Available Not Available Not Available lisdexamf etamine 60 mg capsule TAKE 1 CAPSULE BY MOUTH EVERY DAY 11/10 completed Not Available Not Available Not Available Latisse 0.03 % eyelash drops apply 1 drop by topical route every day to applicat or and apply to upper eyelid, along eyelashe s, at nighttim e 11/10 completed Prescrib ed Elsewher e: Yes Loca tion: [facility] odify By: yuri solorzano DateTime : 12/24/19 14 01:00:00 PM Not Available Not Available Not Available buprenorp sukhdeep 20 mcg/hour weekly transderm al patch APPLY 1 PATCH TO SKIN EVERY WEEK active Not Available Not Available No t Available buprenorp sukhdeep 10 mcg/hour weekly transderm al patch UNWRAP AND APPLY 1 PATCH TO DRY INTACT SKIN EVERY WEEK 11/10 completed Not Available Not Available Not Available One-A-Day Women's 50 Plus active Not Available Not Available Not Available Qsymia 15 mg-92 mg capsule, extended release TAKE 1 CAPSULE BY MOUTH EVERY DAY 11/07 completed Not Available Not Available Not Available buprenorp sukhdeep 15 mcg/hour weekly transderm al patch REMOVE OLD AND APPLY 1 NEW PATCH TO SKIN ONCE PER WEEK. 11/10 completed Not Available Not Available Not Available aspirin 80 mg tablet Take by oral route. active Not Available Not Available No t Available lisdexamf etamine 10 mg capsule Take 1 capsule every day by oral route. active Not Available Not Available No t Available testoster one 50 mg implant pellet Take by implanta tion route. active Not Available Not Available No t Available estradiol 10 mg implant pellet Take by implanta tion route. active Not Available Not Available No t Available semagluti de (weight loss) 0.25 mg/0.5 mL subcutane ous pen injector Inject by subcutan eous route. active Not Available Not Available No t Available Vitals Date Recorded Body height Body mass index (BMI) Body weight Systolic And Diastolic Provider Name and Address Organization Details Last Updated DateTime 11/07/2022 161.29 cm 29.1 kg/m2 13191.93 g 124/80 mm[Hg] Erlinda Sotelo [facility] 11/07/2022 12:53:59 Date Recorded Body height Body mass index (BMI) Body weight Systolic And Diastolic Provider Name and Address Organization Details Last Updated DateTime 11/10/2024 161.29 cm 27.8 kg/m2 79090.34 g 127/78 mm[Hg] Santa Grimmney [facility] 11/10/2024 14:41:50 Date Recorded Body height Body mass index (BMI) Body weight Systolic And Diastolic Provider Name and Address Organization Details Last Updated DateTime 03/21/2021 161.29 cm 30.5 kg/m2 25024.66 g 113/75 mm[Hg] Deanne Mcdowell [facility] 03/21/2021 12:48:47 Date Recorded Body height Provider Name an d Address Organization Details Last Updated DateTime 06/29/2021 161.29 cm Ange Abbott [facility] 06/29/2021 14:35:13 Social History Question Answer Notes LastModified by [employer] Details LastModified Time Tobacco Smoking Status Current Every Day Smoker Deanne Mcdowell ev, [facility] 03/21/2021 12:56:36 Are You Blind Or Do You Have Difficulty Seeing? No Information not available 03/21/2021 What Is Your Level Of Caffeine Consumption? Occasional Information not available 03/21/2021 Are You Deaf Or Do You Have Serious Difficulty Hearing? No Information not available 03/21/2021 What Type Of Diet Are You Following? REGULAR Information not available 03/21/2021 Do You Use Your Seat Belt Or Car Seat Routinely? Yes Information not available 03/21/2021 Do You Have Smoke And Carbon Monoxide Detectors In Your Home? Yes Information not available 03/21/2021 Do You Use Sunscreen Routinely? Yes Information not available 03/21/2021 Sex: Unknown Functional Status Question Answer Note LastModified by [employer] Details LastModified Time Do you use any illicit or recreational drugs? No Information not available 03/21/2021 What is your level of alcohol consumption? Occasional Information not available 03/21/2021 Are you able to walk? YESWOREST Information not available 03/21/2021 What is your exercise level? Occasional Information not available 03/21/2021 Mental Status Question Answer Note LastModified by Organization D etails LastModified Time Do you feel stressed (tense, restless, nervous, or anxious, or unable to sleep at night)? [id number] Information not available 03/21/2021 Family History Relationship Description Onset Age of this Age Resolved Age Notes LastModified by Organization Details LastModified Time Father Malignant neoplasm of lung Not available 2020 12:55:51 Maternal Uncle Malignant neoplasm of lung Not available 2020 12:55:51 Maternal Grandmother Diabetes mellitus Not available 2020 12:55:57 Paternal Grandmother Diabetes mellitus Not available 2020 12:56:06 Sister Malignant tumor of colon Not available 2020 12:56:14 Medical History Condition Response Allergies (Food, seasonal, environmental ) N Other Y Drug/Latex Allergies/Reactions N Breast Cancer N Blood Transfusion N Lung Disease N Dermatologic Disorders N Defects or Inherited Disease N Breast Problem N Gestational Diabetes N Hematologic disorders N Anesthesia Complications N History of STI N Deep Vein Thrombosis N Polycystic ovary syndrome N Anxiety Disorder Y Autoimmune disease N Arthritis N Polyps N Infertility N History of abnormal pap Y Acid Reflux (GERD) N Cancer N Varicosities N Stroke N Neurologic/Epilepsy N Endometriosis N High Cholesterol Y Headaches N Fibromyalgia N Kidney Disease N Heart Problems N Thyroid Problems N Kidney or Bladder Problems N GI Problems N Eating Disorder N Anemia N Art (IVF or FET) N Psychiatric Illness N Ovarian Cancer N Diabetes N Pulmonary (TB, Asthma) N Hepatitis/Liver Disease N No Past Medical History N Eczema N Urinary Tract Infection N Abuse/Domestic Violence N Asthma N Trauma/Violence N Depression/ depression Y Heart Disease N Pre-Eclampsia N Hypertension N Osteoporosis N Thrombophilias N Gynecological History Statement/Question Response Abnormal Pap Y Date of Last Mammogram 03/21/2021 Date of LMP 07/29/2006 STIs/STDs N HPV Vaccine N 07/29/2019 11 Current Control Method Menopause If Post Menopausal, Age at Menopause 42 Date of Last Colonoscopy Most Recent Bone Density Sexually Active? Y Menses Monthly N Date of Last Pap Smear 11/07/2022 Sexual Problems? Y Desired Control Method Ablation LMP Unknown Obstetrics History GPAL:G 2 P 2 0 0 2 Type Value Full Term 2 Living 2 Total 2 Past Encounters Encounter ID Performer Location Encounter Start Date Encounter Closed Date Diagnosis/Indication Diagnosis SNOMED-CT Code Diagnosis ICD10 Code Diagnosis Note [id number] Rubi Rankin [facility] [address] [address] 03/21/2021 11:41:53 03/22/2021 14:13:59 Gynecologic examination 09784824 Z01.419 Take Calcium with Vitamin D 12-1500mg daily. Do monthly self breast exams. It is advised to get annual flu shot in the fall and she could obtain at [facility] or [facility] care [facility]. If you haven't received the Tdap vaccine in the last 10 years you should obtain one as well. Have mammogram yearly, bone density every 2-3 years and colonoscop y every 5-10 years depending on findings and history. Engage in daily exercise of low impact aerobic exercise 45-60 minutes 4-5 times weekly. Avoid tobacco and illicit drugs as well as using moderation with alcohol intake less than 1-2 8 oz beverages daily. This lifestyle behavior pattern will lead to less health conditions and longer life span. If BMI greater than 25 weight watchers or dietary consult advised. Questions have been answered. Patient appears to understand instructio ns, but if you have any further questions call or respond to this email Mammo UTDColon UTDDexa consider next yearPap/hp v doneCurren t every day smoker.HIG HLY Recommende d that patient stop smoking; aware this can increase her risks for breast cancers/ca rdiovascul ar related risks such as DVT/PE/Str okes by itself & using HRT. Lack of libido [id number] R68.82 Trial of Testim 50gm tube, apply two drops daily to each inner thigh.RTO x 8wks for f/u Menopausal symptom 46689 002 N95.1 R/B's discussed. Wishes to continue this therapy. [id number] Rubi Rankin [facility] [address] [address] 06/29/2021 14:14:46 06/29/2021 15:23:19 Reduced libido 4504837 R68.82 Will trial Testim jelly using 3 drops per inner thigh daily vs two drops as she has been.Will f/u x 8wks at which we will need to r/p her total testostero ne levels. Counseled on medication R/B's, Most common side effects, & use. All questions were answered to patient satisfacti on. Time spent in visit is a total of 15 mins with at least 50% of visit consisting of counseling and review of plan of care.Addit ional precaution mychal measures were taken to minimize potential exposure to the Covid-19 virus during this patient s visit, including available hand ore tester upon arrive, tempercodieur e check and being asked a series of screening questions. All staff wore face coverings during this encounter, as well as provided additional cleaning and sanitizing of all surfaces, including countertop s, pens, chairs, door handles, light switches, etc, prior to and following the patient s visit. [id number] Rubi Rankin , [facility] [address] [address] 11/07/2022 12:23:06 11/07/2022 13:41:58 Gynecologic examination 18087185 Z01.419 Z11.51 Take Calcium with Vitamin D 12-1500mg daily. Do monthly self breast exams. It is advised to get annual flu shot in the fall and she could obtain at [facility] or [facility] care clinic. If you haven't received the Tdap vaccine in the last 10 years you should obtain one as well. Have mammogram yearly, bone density every 2-3 years and colonoscop y every 5-10 years depending on findings and history. Engage in daily exercise of low impact aerobic exercise 45-60 minutes 4-5 times weekly. Avoid tobacco and illicit drugs as well as using moderation with alcohol intake less than 1-2 8 oz beverages daily. This lifestyle behavior pattern will lead to less health conditions and longer life span. If BMI greater than 25 weight watchers or dietary consult advised. Questions have been answered. Patient appears to understand instructio ns, but if you have any further questions call or respond to this email Mammo orderedCol on UTD PCPDexa PCPPap/hpv doneCurren t every day smoker.HIG HLY Recommende d that patient stop smoking; aware this can increase her risks for breast cancers/ca rdiovascul ar related risks such as DVT/PE/Str okes by itself & using HRT. Screening mammography 24 131460 Z12.31 Hormone re placement therapy [id number] Z79.890 Counseled on the following: Females >10yrs past menopause (& age 60yo+) are generally not good candidates for starting (1st use) systemic HT. Decisions to continue systemic HT > a decade past menopause (or past age 60yo) requires balancing R/B's; & individual ized needs. Non-hormon al options may be more appropriat e for females >10yrs past menopause. We discussed weaning next year when 58yo due to risks. Pt insurance will no longer cover estra/nore th 0.5/0.1 pack.We will send out Estradiol 0.5mg along with prometrium 100mg for uterine lining protection .She will again need to discuss weaning from these after age 60yo; and again encouraged stop smoking which would lower risks of cardiovasc ular events. Acute sinusitis 09274444 J01.90 Sinus infection for >1wk Neg N/V/f/D/CN eg body aches or chillsNasa l/sinus congestion presentIs f/u with her PCP next weekRx sent Counseled on medication R/B's, Most common side effects, & use. All questions were answered to patient satisfacti on. [id number] JOHNNY Roman [place] [address] [address] 11/10/2024 14:25:43 11/10/2024 15:48:53 Gynecologic examination 90900533 Z01.419 WWEpostmen opausalPap - UTD, done today per pt requestSTI screen - declinedMa mmogram - order givenColon cancer screening - UTDDexa - UTD/PCPRou alphonse labs - UTD/PCPsmo sudha alyssia encouraged RTC in 1 yr or sooner if needed Do monthly self breast exams.It is advised to get annual flu shot in the fall and she could obtain at local pharmacy. If you haven't received the Tdap vaccine in the last 10 years you should obtain one as well.Have mammogram yearly, bone density every 2-3 years and stay up to date on colon cancer screening. Engage in regular exercise. Avoid tobacco and illicit drugs. This lifestyle behavior pattern will lead to less health conditions and longer life span. If BMI greater than 25 dietary consult advised.Qu estions have been answered. Screening for malignant neoplasm of breast 232625280 Z12.39 Health Concerns Section Related Observation LastModified by Organization Detai ls LastModified Time None Recorded Concern Status LastModified by Organization Details LastModified Time None Recorded Advance Directives Directive None Recorded Payers Insurance Date Sequence Insurance Name Policy Number Policy Holden Covered Member ID Holden Member ID Guarantor Name 11/10/2024 1 [facility] (MEDICARE REPLACEMENT/A DVANTAGE - PPO) [id number] Carola Aguirre [id number] Carola Schultzcooper 11/10/2024 1 [employer] (MEDICARE REPLACEMENT/A DVANTAGE - PPO) [id number] Carola Aguirre [id number] Carola Aguirre Notes Date Note Type Note Provider Name and Address Organization Details Recorded Time 1 text/html Today patient voices that she has not noted a huge difference in her low libido with use of testim jelly topically as previously instructed.She has not experienced any negative side effects but no significant improvements either.She would like to try going up in dosage before considering other options.Continues to verify that she feels supported & happy in her current relationship.Able to have arousal & orgasm but desire is not there at all. Phone Consent: This visit was completed via Virtual Visit Zoom due to the restrictions of the COVID-19 pandemic; all issues as below were discussed and addressed but no physical exam was performed. If it was felt that the patient should be evaluated in clinic then they were directed there. The patient verbally consented to this virtual Zoom visit. ASIM Salgado [address], [place], [address], [facility] 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 Post-MenopausalReported bypatient.Menopausal Symptoms:no menopausal symptoms; normal vaginal lubrication Vaginal Bleeding:history of menopause having occurred; no history of post menopausal bleeding Urinary Symptoms:no hematuria; no incontinence; no nocturia; no urinary frequency Vulva:no genital lesion; no vulvar atrophy Vagina:normal vaginal discharge; no vaginal atrophy Breast:no breast lump; no nipple discharge; no breast pain Sexual Complaints:no sexual complaints Psychological Symptoms:no depression; no anxiety Preventive Measures:encourage regular mammograms starting age 40; encourage self breast examination; encourage regular exercise; encourage no tobacco use; needs to schedule mammogram; history of recent colonoscopy CARLI Salgado [address], [place], [address], [facility] 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 Post-MenopausalReported bypatient.Menopausal Symptoms:no menopausal symptoms; normal vaginal lubrication Vaginal Bleeding:history of menopause having occurred; no history of post menopausal bleeding Urinary Symptoms:no hematuria; no incontinence; no nocturia; no urinary frequency Vulva:no genital lesion; no vulvar atrophy Vagina:normal vaginal discharge; no vaginal atrophy Breast:no breast lump; no nipple discharge; no breast pain Sexual Complaints:no sexual complaints Psychological Symptoms:no depression; no anxietyNotes:59yo wwepostmenopausalno h/o abnormal papslast pap 10/2022 : nilm, HPV (-)has mammogram scheduled for olonoscopy UTDdexa UTD/PCP per pt on HRT pellets from another provider, pt states she is unsure what is in pellets. On daily oral progesterone. JOHNNY Roman [address], [place], [address], [facility] 11/11/2024 09:29:48 OBGyn Episode Ob Episode Information Episode Created Date Number of Fetuses Patient Bloodtype Patient rh Status Prepregnancy Weight lbs Domestic Partner Domestic Partner Phone Father Name Senior Program Analyst Status 03/21/20 21 1 CLOSED Fetus Data First Name Last Name Admitted to NICU Weight (g) Sex Living Outcome Pediatric Complications Fetus ID Race Codes Race Delivery Type 71043.0 32 M Full Term [id number] Repeat Paul Calculation Initial Paul Date Initial Exam Date Initial Exam Provider Initial Ultrasound Date Last Menstrual Period Date Ultra Sound Weeks Gestation 0 Eighteen To Twenty Week Paul Update Ultra Sound Date Fundal Height At Umbil Quickening Date Ultra Sound Latest Weeks Gestation Final Paul Confirmed By Final Paul Confirmed Date Final Paul Date Ultra Sound Latest Days Gestation 0 0 Menstrual History Last Menstrual Date Menses Monthly On Bcp Conception Prior Menses Frequency Hcg Plus Date Menarche Onset Age Delivery Information Delivery Date Delivery Type Labor Anesthesia Weeks Gestation Incision Type Labor Labor Length Hrs Delivered By Post Complications Tubal Sterilization Discharge Date Comments 3 40 Discharge Information Feeding Method Contraceptive Method Maternal HG B and HCT Levels Ob Episode Information Episode Created Date Number of Fetuses Patient Bloodtype Patient rh Status Prepregnancy Weight lbs Domestic Partner Domestic Partner Phone Father Name Senior Program Analyst Status 03/21/20 21 1 CLOSED Fetus Data First Name Last Name Admitted to NICU Weight (g) Sex Living Outcome Pediatric Complications Fetus ID Race Codes Race Delivery Type 3515.33 8 F Full Term [id number] Primary Paul Calculation Initial Paul Date Initial Exam Date Initial Exam Provider Initial Ultrasound Date Last Menstrual Period Date Ultra Sound Weeks Gestation 0 Eighteen To Twenty Week Paul Update Ultra Sound Date Fundal Height At Umbil Quickening Date Ultra Sound Latest Weeks Gestation Final Paul Confirmed By Final Paul Confirmed Date Final Paul Date Ultra Sound Latest Days Gestation 0 0 Menstrual History Last Menstrual Date Menses Monthly On Bcp Conception Prior Menses Frequency Hcg Plus Date Menarche Onset Age Delivery Information Delivery Date Delivery Type Labor Anesthesia Weeks Gestation Incision Type Labor Labor Length Hrs Delivered By Post Complications Tubal Sterilization Discharge Date Comments 0 40 Discharge Information Feeding Method Contraceptive Method Maternal HG B and HCT Levels
--- OUTSIDE RECORDS SUMMARY | 2025-02-08 07:04 | XMS_ITS | Clinical Summary ---
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 Other Medical back pain Hx Other Medical CAR Hx Other Medical night sweats Depression Peripheral neuropathy feet Family History Medical History Relation Name Comments Depression Brother 2 Depression; Colon cancer Brother 3 Cancer -colon; Cause of : Cancer -colon Cancer Father Depression Maternal Grandmother Depress ion; Cancer Mother Depression Mother Depression; Depression Paternal Grandmother Depress ion; Cancer Sister Alcohol abuse Neg Hx Arthritis Neg Hx Hypertension Neg Hx Relation Name Status Comments Brother 1 (Age 29) Brother 2 Brother 3 Father Maternal Grandmother Mother Paternal Grandmother Sister Social History Tobacco Use Types Packs/Day Years Used Date Smoking Tobacco: Every Day Smokeless Tobacco: Current Tobacco Cessation:Ready to Q uit: Yes Alcohol Use Standard Drinks/Week Comments Yes 0 (1 standard drink = 0.6 oz pur e alcohol) social Comments Unknown Sex and Gender Information Value Date Recorded Sex Assigned at Not on file 

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
--- OUTSIDE RECORDS SUMMARY | 2025-02-08 07:04 | XMS_ITS | Clinical Summary ---
Author Organization [facility] Care Team Providers Care Nfl Player Name Role Phone Unavailable Primary Care Provider Unavailabl e Social History Tobacco Use Types Packs/Day Years Used Date Smoking Tobacco: Never Assessed Comments Unknown Sex and Gender Information Value Date Recorded Sex Assigned at Not on file Legal Sex Female 11:53 PM CDT Gender Identity Not on file Sexual Orientation Not on file Plan of Treatment Not on file
--- NOTE | 2025-02-08 07:28 | P.PNAN_ITS ---
Anes - Initial Pre Proc Eval Procedure: Operation Date: 02/08/25 08:30 Proposed Procedures p Screening Colonoscopy - Brando Souza MD Date/Time: 02/08/25 07:28 Surgeon: Brando Souza MD Pre Op Diagnosis: Neoplasm Screening Patient Data Age: 59 Gender: F Height: 1.63 m Weight: 70 kg Allergies Allergy/AdvReac Type Severity Reaction Status Date / Time iohexol (From CONTRAST - CT, Allergy Intermediate Nausea Verified 02/08/25 07:15 XRAY) shellfish derived Allergy Intermediate Numbness Verified 02/08/25 07:15 adhesive tape AdvReac Mild Rash Verified 02/08/25 07:15 Home Medications ?Medication ?Instructions ?Recorded ?Confirmed ?Type alprazolam 0.5 mg tablet 0.5 mg PO TID PRN Anxiety 08/10/19 01/26/25 History aspirin 81 mg tablet,delayed 81 mg PO DAILY 08/10/19 01/26/25 History release (Adult Low Dose Aspirin) fluoxetine 40 mg capsule (Prozac) 40 mg PO DAILY 08/10/19 01/26/25 History hydrocodone 5 mg-acetaminophen 325 1 - 2 tablet PO Q4-6H PRN Pain 08/10/19 01/26/25 History mg tablet rosuvastatin 40 mg tablet 40 mg PO DAILY 08/10/19 01/26/25 History vitamin B complex-folic acid 0.4 1 tablet PO DAILY 08/10/19 01/26/25 History mg tablet (B Complex 1 (with folic acid)) lisdexamfetamine 70 mg capsule 70 mg PO DAILY 01/26/25 01/26/25 History multivitamin-ferrous 1 tablet PO DAILY 01/26/25 01/26/25 History fumarate-folic acid 18 mg-400 mcg tablet (Women's Daily Multivitamin) progesterone micronized 100 mg 100 mg PO QPM 01/26/25 01/26/25 History capsule semaglutide (weight loss) 0.5 0.25 mg subcut WEEKLY 01/26/25 01/26/25 History mg/0.5 mL subcutaneous pen injector Patient hx anesthesia problems: none Family hx anesthesia problems: none Results Review: All pre-operative results and documents have been reviewed as part of the pre- operative evaluation. [facility] Past Medical History Medical History Depression Dyslipidemia Surgical History Surgical History Status post Status post laser cataract surgery of right eye History of ankle surgery Social History Social History Smoking packs per day: 0.5 Smoking cigarettes per day: 10.0 Years smoked: 40 Smoking pack-years: 20.00 Smoking status: Current every day smoker Tobacco type: cigarettes Alcohol intake: current Substance use: current Substance use type: marijuana Other substance usage details: occasional Anes - Eval Final PreProcedure Day of Procedure 02/08/25 07:28 Heart: regular rate and rhythm Lungs: clear to auscultation Airway: Mallampati scale class II Neurological: alert and oriented Last oral intake: >/= 8 hours ASA classification: II Anesthetic plan: proceed Anesthesia type and monitoring: monitored anesthesia care Results Review: All pre-operative results and documents have been reviewed as part of the pre- operative evaluation. Informed Consent: The patient's anesthetic plan and its attendant risks and benefits were discussed with the patient/family/POA. Questions were solicited and answers provided to the satisfaction of the patient/family/POA.
[2025-02-08 07:33] VITALS: BMI 26.1
[2025-02-08 07:34] VITALS: BP 107/79; PULSE 64; RESP 18; TEMP 36.6; O2SAT 100
[2025-02-08] MEDS: LACTATED RINGERS 1,000 ML 150 ML IV CONT (07:49)
--- NOTE | 2025-02-08 08:23 | PM.IMHP ---
H&P: HPI History of Present Illness Date/Time: 02/08/25 08:23 Chief Complaint: Family history of colorectal cancer Narrative: This patient has family history of colorectal cancer. her sister of colorectal cancer at age 29. She has had colonoscopies, the last one 4 years ago. Review of Systems Review of Systems: All systems reviewed & are unremarkable except as noted in HPI and below PMFSH Past Medical History Medical History (Updated 02/08/25 @ 08:25 by Brando Souza MD) Depression Dyslipidemia Surgical History Surgical History Status post Status post laser cataract surgery of right eye History of ankle surgery Social History Social History Smoking packs per day: 0.5 Smoking cigarettes per day: 10.0 Years smoked: 40 Smoking pack-years: 20.00 Smoking status: Current every day smoker Tobacco type: cigarettes Alcohol intake: current Substance use: current Substance use type: marijuana Other substance usage details: occasional Meds Home Medications and Allergies Home Medications ?Medication ?Instructions ?Recorded ?Confirmed ?Type alprazolam 0.5 mg tablet 0.5 mg PO TID PRN Anxiety 08/10/19 02/08/25 History aspirin 81 mg tablet,delayed 81 mg PO DAILY 08/10/19 02/08/25 History release (Adult Low Dose Aspirin) fluoxetine 40 mg capsule (Prozac) 40 mg PO DAILY 08/10/19 02/08/25 History hydrocodone 5 mg-acetaminophen 325 1 - 2 tablet PO Q4-6H PRN Pain 08/10/19 02/08/25 History mg tablet rosuvastatin 40 mg tablet 40 mg PO DAILY 08/10/19 02/08/25 History vitamin B complex-folic acid 0.4 1 tablet PO DAILY 08/10/19 02/08/25 History mg tablet (B Complex 1 (with folic acid)) lisdexamfetamine 70 mg capsule 70 mg PO DAILY 01/26/25 02/08/25 History multivitamin-ferrous 1 tablet PO DAILY 01/26/25 02/08/25 History fumarate-folic acid 18 mg-400 mcg tablet (Women's Daily Multivitamin) progesterone micronized 100 mg 100 mg PO QPM 01/26/25 02/08/25 History capsule semaglutide (weight loss) 0.5 0.25 mg subcut WEEKLY 01/26/25 02/08/25 History mg/0.5 mL subcutaneous pen injector Allergies Allergy/AdvReac Type Severity Reaction Status Date / Time iohexol (From CONTRAST - CT, Allergy Intermediate Nausea Verified 02/08/25 07:15 XRAY) shellfish derived Allergy Intermediate Numbness Verified 02/08/25 07:15 adhesive tape AdvReac Mild Rash Verified 02/08/25 07:15 Vital Signs Vital Signs - 24 hr 02/08/25 07:34 Temperature 98 F Pulse Rate 64 Respiratory Rate 18 Blood Pressure 107/79 Pulse Oximetry 100 Oxygen Delivery Room Air Exam Const: General: cooperative and healthy appearing Resp: Effort & Inspection: normal respiratory effort and able to speak in complete sentences Auscultation: clear to auscultation bilaterally Cardio: Rate: regular rate Rhythm: regular rhythm GI: Inspection: normal to inspection GI Palp: No No hepatosplenomegaly present Auscultation: normal bowel sounds Rectal Exam: deferred Skin: General skin exam: normal color Psych: Appearance: grossly normal Mental Status: mental status grossly normal Assessment and Plan Assessment and plan (1) Family history of colon cancer: Code(s): Z80.0 - Family history of malignant neoplasm of digestive organs Status: Acute Assessment and Plan: The patient is deemed a good candidate for the procedure. Consent signed. Will proceed.
--- NOTE | 2025-02-08 08:42 | WPDANESPN ---
Anes - Prog Note Post-Op Date/Time: 02/08/25 08:42 Vital Signs: Last Vital Signs Temp 98 F 02/08/25 07:34 Pulse 64 02/08/25 07:34 Resp 18 02/08/25 07:34 BP 107/79 02/08/25 07:34 Pulse Ox 100 02/08/25 07:34 O2 Del Method Room Air 02/08/25 07:34 Pain Score (VAS): no Patient Feedback: Patient satisfied with anesthetic care.
[2025-02-08 08:57] VITALS: BP 102/67; PULSE 74; RESP 16; O2SAT 99
[2025-02-08 09:07] VITALS: BP 104/58; PULSE 70; RESP 16; O2SAT 100
[2025-02-08 09:17] VITALS: BP 119/65; PULSE 86; RESP 16; O2SAT 100
== END 2025-02-08 09:20 | disposition home or self-care (01) ==
PROVIDERS: PCP Internal Medicine; Visit Provider Internal Medicine Gastroenterology
PROC: 0DJD8ZZ Inspection of Lower Intestinal Tract, Via Natural or Artificial Opening Endoscopic (ICD-10-PCS; CPT 45378; principal; 2025-02-08 08:30)
DX: Z12.11 Encounter for screening for malignant neoplasm of colon (principal); Z80.0 Family history of malignant neoplasm of digestive organs
CPT/HCPCS: G0105

== ENCOUNTER 2025-04-20 09:30 | Outpatient (CLI) | payer MEDICARE, SELFPAY ==
--- OUTSIDE RECORDS SUMMARY | 2024-06-24 06:45 | XMS_ITS ---
Author Organization [facility] [employer] [facility] Address [address] [place] [address] Care Team Providers Care Supervisor Prep Name Role Phone Joel Augustin MD Primary Care Provider Ramiro Cagle Unavailable [phone] Allergies Allergen (clinical drug ingredient) Drug/Non Drug Allergy documented on EMR Reaction Allergy Type Onset Date Status Iodine Unknown Drug Allergy Active Medications Medication SIG (Take, Route, Frequency, Duration) Notes Start Date End Date Status FLUoxetine HCl 40 MG Capsule 1 capsule every Morning Oral Once a day Active ALPRAZolam 0.5 MG Tablet 0.5 tablet Oral Three times a day Active Amphetamine-Dextroamphetam ine 30 MG Tablet 1 tablet Orally Once a day Active Amphetamine ER 10 MG Tablet Chewable Extended Release 1 tablet in the morning Orally Once a day Active One A Day Women 50 Plus - Tablet as directed Orally Active B Complex - Capsule as directed Orally Active HYDROcodone-Acetaminophen 5-325 MG Tablet 1 tablet as needed Orally every 6 hrs Active Chantix 1 MG Tablet 1 tablet Orally twic e a day; Duration: 30 days 06/10/2024 08/09/2024 Active Social History Sex Assigned At : Social History Observation Description Sex Assigned At Female Vital Signs Height 64 in 06/24/2024 Height-cm 162.56 cm 06/24/2024 Encounters Encounter Location Date Provider Diagnosis [facility] [employer] [facility] [address] [place] [address] 06/24/2024 Ramiro Reyes Plan Of Treatment No Information Progress Notes * Beatriz AGUIRREOB:[birth year] (59 yo F)Acc No.[id number]:06/24/2024 Patient: Carola Cuello Provider: Socorro REYES MD :1965 A ge:58 Y S ex:Female Date:06/24/2024 Phone: Address:[address] [facility], [facility] Pcp:Joel Augustin MD Subjective: * Chief Complaints: * Active Problem List F17.200 Nicotine dependence with current use Modified On:04/23/2024W/U Status:confirmed 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 No Social History documented. * Medications: T akingALPRAZolam 0.5 MG Tablet 0.5 tablet Oral Three times a day Amphetamine-Dextroamphetamine 30 MG Tablet 1 tablet Orally Once a day Amphetamine ER 10 MG Tablet Chewable Extended Release 1 tablet in the morning Orally Once a day One A Day Women 50 Plus - Tablet as directed Orally FLUoxetine HCl 40 MG Capsule 1 capsule every Morning Oral Once a day B Complex - Capsule as directed Orally HYDROcodone-Acetaminophen 5-325 MG Tablet 1 tablet as needed Orally every 6 hrs Chantix 1 MG Tablet 1 tablet Orally twice a day , stop date 08/09/2024Medication List reviewed and reconciled with the patientTaking ALPRAZolam 0.5 MG Tablet 0.5 tablet Oral Three times a day Taking Amphetamine-Dextroamphetamine 30 MG Tablet 1 tablet Orally Once a day Taking Amphetamine ER 10 MG Tablet Chewable Extended Release 1 tablet in the morning Orally Once a day Taking One A Day Women 50 Plus - Tablet as directed Orally Taking FLUoxetine HCl 40 MG Capsule 1 capsule every Morning Oral Once a day Taking B Complex - Capsule as directed Orally Taking HYDROcodone-Acetaminophen 5-325 MG Tablet 1 tablet as needed Orally every 6 hrs Taking Chantix 1 MG Tablet 1 tablet Orally twice a day , stop date 08/09/2024Medication List reviewed and reconciled with the patient * Allergies: I odineyesAllergies Verified. Objective: * Vitals: H t: 64 in, Ht-cm: 162.56 cm. * Electronic signature of Ya Reyes MD on 04/20/2025 at 10:16 AM CDT Sign off status: Pending * Provider: Socorro REYES MD Date: 1 08/24/2023 Generated for Christie adler/Jose L/Melinaitting on: 0 04/20/2025 10:16 AM CDT
--- NOTE | ~2025-04-20 | MM_ITS ---
EXAMINATION: MM screening ricky BI w tino HISTORY: Screening TECHNIQUE: Craniocaudal and mediolateral oblique 3-D tomosynthesis images were obtained and synthetic 2-D images were generated. CAD analysis was submitted and interpreted. COMPARISON: 03/21/2021 BREAST PARENCHYMAL COMPOSITION: The breasts are heterogeneously dense, which may obscure small masses. FINDINGS: There is no evidence of suspicious mass, calcification, or architectural distortion to suggest malignancy. There has been no suspicious interval change. IMPRESSION: 1. No mammographic evidence of malignancy. Recommend routine screening mammography in one year. BI-RADS Category 2: Benign finding(s) Reviewed, dictated and finalized at location Q. IMPRESSION: 1. No mammographic evidence of malignancy. Recommend routine screening mammogra phy in one year. BI-RADS Category 2: Benign finding(s)
--- OUTSIDE RECORDS SUMMARY | 2025-04-20 10:17 | XMS_ITS | Clinical Summary ---
Author Organization [facility] Care Team Providers Care Light Bulb Replacer Name Role Phone Unavailable Primary Care Provider [...]
--- OUTSIDE RECORDS SUMMARY | 2025-04-20 10:17 | XMS_ITS | Patient Health Record ---
Author Organization [facility] [employer] Address [address] [place] [address] Care Team Providers Care Risk Professional Name Role Phone Joel Augustin MD Primary Care Provider Unav Ramiro Barry Unavailable [phone] Allergies Allergen (clinical drug ingredient) Drug/Non Drug Allergy documented on EMR Reaction Allergy Type Onset Date Status Iodine Unknown Drug Allergy Active Reason For Referral No Information Medications Medication SIG (Take, Route, Frequency, Duration) Notes Start Date End Date Status FLUoxetine HCl 40 MG Capsule 1 capsule every Morning Oral Once a day Active B Complex - Capsule as directed Orally Active HYDROcodone-Acetaminophen 5-325 MG Tablet 1 tablet as needed Orally every 6 hrs Active ALPRAZolam 0.5 MG Tablet 0.5 tablet Oral Three times a day Active Amphetamine-Dextroamphetami ne 30 MG Tablet 1 tablet Orally Once a day Active Amphetamine ER 10 MG Tablet Chewable Extended Release 1 tablet in the morning Orally Once a day Active One A Day Women 50 Plus - Tablet as directed Orally Active Social History Tobacco Use: Social History Observation Description Date Details (start date - stop date) Heavy tobacco s moker NA - NA Sex Assigned At : Social History Observation Description Sex Assigned At Female Social History Miscellaneous: Social Info Question Answer Notes Safety issues: Are there any firearms in the house? Ye s Social History Social Info Question Answer Notes Household: Marital Status: Number of Adults in household: 2 Number of Children in Household: 0 Level of Education: Not Finished College Drug/Alcohol: Social Info Question Answer Notes Drugs Have you used drugs other than those for medical reasons in the past 12 months? No AUDIT-C (Standard) Did you have a drink containing alcohol in the past year? Yes How often did you have six or more drinks on one occasion in the past year? Declined to specify (0 point) How many drinks did you have on a typical day when you were drinking in the past year? Declined to specify (0 point) How often did you have a drink containing alcohol in the past year? 2 to 4 times a month (2 points) Tobacco Use: Social Info Question Answer Notes Tobacco Control (Standard) Tobacco use: Heavy tobacco smoker When did you start smoking? 18 yrs old How often do you smoke cigarettes? Every day How many cigarettes a day do you smoke? 11-20 How soon after you wake up do you smoke your first cigarette? 6-30 minutes Are you interested in quitting? 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 Problems Problem Type SNOMED Code ICD Code Onset Dates Problem Status W/U Status Risk Notes Problem Severe recurrent major depression without psychotic features (23716258) Major depressive disorder, recurrent severe without psychotic features (F33.2) Active confirmed Problem Tobacco user (847358145) Nicotine dependence with current use (F17.200) Active confirmed Vital Signs Heart Rate 72 /min 06/10/2024 Height-cm 162.56 cm 06/10/2024 Blood pressure diastolic 88 mm Hg 06/10/2024 Weight-kg 78.02 kg 06/10/2024 Height 64 in 06/10/2024 Blood pressure systolic 146 mm Hg 06/10/2024 Weight 172 lbs 06/10/2024 BMI 29.52 kg/m2 06/10/2024 Encounters Encounter Location Date Provider Diagnosis [employer] [address] [facility] [address] [place] [address] 04/23/2024 Ramiro Cesar Nicotine dependence with current use F17.[address] [place] [address] 04/28/2024 Ramiro Cesar Nicotine dependence with current use F17.[address] [facility] [address] [place] [address] 04/29/2024 Ramiro Cesar Nicotine dependence with current use F17.200 [employer] [facility] [employer] [facility] [address] [place] [address] 04/30/2024 Ramiro Cesar Nicotine dependence with current use F17.[address] [place] [address] 05/01/2024 Ramiro Cesar Nicotine dependence with current use F17.200 [facility], [facility] [address] [place] [address] 05/04/2024 Ramiro Cesar Nicotine dependence with current use F17.200 [place] [address] [place] [address] 05/05/2024 Ramiro Cesar Nicotine dependence with current use F17.200 [place] [address] [place] [address] 05/06/2024 Ramiro Cesar Nicotine dependence with current use F17.200 [facility] [address] [place] [address] 05/07/2024 Ramiro Cesar Nicotine dependence with current use F17.200 [place] [address] [place] [address] 05/08/2024 Ramiro Cesar Nicotine dependence with current use F17.200 [place] [address] [place] [address] 05/11/2024 Ramiro Cesar Nicotine dependence with current use F17.200 [facility] [address] [place] [address] 05/11/2024 Ramiro Cesar Nicotine dependence with current use F17.200 [place] [address] [place] [address] 05/12/2024 Ramiro Cesar Nicotine dependence with current use F17.200 [facility] [address] [place] [address] 05/13/2024 Ramiro Cesar Nicotine dependence with current use F17.200 [facility] [address] [place] [address] 05/15/2024 Ramiro Cesar Nicotine dependence with current use F17.200 [facility] [address] [place] [address] 05/20/2024 Ramiro Cesar Current smoker F17.200 [place] [address] [place] [address] 05/21/2024 Ramiro Cesar Current smoker F17.200 [facility] [employer] [facility] [address] [place] [address] 05/27/2024 Ramiro Cesar Current smoker F17.200 [facility] [employer] [facility] [address] [place] [address] 06/03/2024 Ramiro Cesar Current smoker F17.200 [facility] [employer] [place] [address] [place] [address] 06/10/2024 Ramiro Cesar Current smoker F17.200 [facility] [employer] [place] [address] [place] [address] 06/10/2024 Ramiro Cesar Nicotine dependence with current use F17.200 [facility] [employer] [place] [address] [place] [address] 06/24/2024 Ramiro Cesar Current smoker F17.200 [facility] [employer] [place] [address] [place] [address] 04/30/2024 Ramiro Cesar [facility] [employer] [place] [address] [place] [address] 05/14/2024 Ramiro Cesar [facility] [employer] [facility] [address] [place] [address] 05/25/2024 Ramiro Cesar [facility] [employer] [facility] [address] [place] [address] 01/18/2025 Ramiro Cesar Assessments Encounter Date Diagnosis [...] Patient sees Dr. Rainer Augustin monthly in [place] and will discuss Chantix at the next [...] mg twice daily. - Send prescription to [facility] in [place]. - Follow up with Dr. Augustin and [...] Insured Coverage Start Date Coverage End Date [facility] [address] [place] [address] [id number] Carola Chaudhary Self - patient is the [...]
--- OUTSIDE RECORDS SUMMARY | 2025-04-20 10:17 | XMS_ITS | Clinical Summary ---
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
== END 2025-04-20 09:31 | disposition home or self-care (01) ==
PROVIDERS: PCP Internal Medicine; Visit Provider Nurse Practitioner
DX: Z12.31 Encounter for screening mammogram for malignant neoplasm of breast (principal)
CPT/HCPCS: 77063; 77067